=== PATIENT | male | born 1990 | race Caucasian/White ===

== ENCOUNTER 2017-12-24 19:33 | Emergency (ER) | payer OTHER ==
[2017-12-24 19:51] VITALS: BP 129/81; PULSE 62; RESP 20; TEMP 97.3; O2SAT 100
[2017-12-24] MEDS ORDERED: Bacitracin 500 Units/gm Oint Foilpak UD TOP ONE (20:28)
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
[2017-12-24] MEDS ORDERED: Bacitracin 500 Units/gm Oint Foilpak UD ONE (20:37)
== END 2017-12-24 21:14 | disposition home or self-care (01) ==
LOC: C.ER 19:33
DX: S50.02XA Contusion of left elbow, initial encounter (principal); S50.01XA Contusion of right elbow, initial encounter; S60.222A Contusion of left hand, initial encounter; S80.01XA Contusion of right knee, initial encounter; V17.4XXA Pedal cycle driver injured in collision with fixed or stationary object in traffic accident, initial encounter; Y92.410 Unspecified street and highway as the place of occurrence of the external cause